=== PATIENT | female | born 1970 | race Caucasian/White ===

== ENCOUNTER → 2017-02-22 | Outpatient (CLI) | payer BC ==
[2017-02-22 16:22] LABS: Follicle Stimulating Hormone 4.8 mIU/mL; Prolactin 11.8 ng/mL (3.0-18.6)
== END | disposition home or self-care (01) ==
LOC: LABWHC1 15:23
PROVIDERS: ATTEND Obstetrics & Gynecology
DX: N92.0 Excessive and frequent menstruation with regular cycle (principal)
CPT/HCPCS: 36415; 82670; 83001; 83002; 84146; 84443

== ENCOUNTER → 2017-03-06 | Outpatient (CLI) | payer BC ==
--- NOTE | 2017-03-06 14:21 | MM ---
Reason for exam: screening (asymptomatic). Baseline mammogram. History: Patient history of other cancer. Physical Findings: Nurse did not find any significant physical abnormalities on exam. MG Screening Mammo w CAD Bilateral CC and MLO view(s) were taken. XCCL view(s) were taken of the right breast. The breast tissue is heterogeneously dense. This may lower the sensitivity of mammography. Finding: There is a 4 mm equal density, circumscribed round mass located 10 cm from the nipple in the middle position of the right breast. Focal asymmetry left upper middle CC view. These results were verbally communicated with the patient and result sheet given to the patient on 03/06/17. ASSESSMENT: Probably benign, BI-RAD 3 RECOMMENDATION: Follow-up diagnostic mammogram of both breasts in 6 months.
== END | disposition home or self-care (01) ==
LOC: RADMAMWWP 08:12
PROVIDERS: ATTEND Obstetrics & Gynecology
DX: Z12.31 Encounter for screening mammogram for malignant neoplasm of breast (principal)

== ENCOUNTER → 2017-04-12 | Outpatient (CLI) | payer BC ==
[2017-04-12 11:29] LABS: Basophils # (A) 0.1 k/uL (0-0.2); Basophils % (A) 1 %; CH 30.4; CHCM 32.1; Eosinophils # (A) 0.1 k/uL (0-0.7); Eosinophils % (A) 1 %; HCT 35.5 % (34.0-46.0); HDW 2.29; HGB 11.5 gm/dL (11.4-16.0); Luc # (Auto) 0.18; Luc % (Auto) 3; Lymphocytes # (A) 1.5 k/uL (1.0-4.8); Lymphocytes % (A) 21 %; MCH 30.7 pg (25.0-35.0); MCHC 32.3 g/dL (31.0-37.0); MCV 95.1 fL (80.0-100.0); Mean Platelet Volume 7.3; Monocytes # (A) 0.5 k/uL (0-1.0); Monocytes % (A) 7 %; Neutrophils # (A) 4.9 k/uL (1.3-7.7); Neutrophils % (A) 67 %; RBC 3.73 m/uL (3.80-5.40); RDW 13.8 % (11.5-15.5); WBC 7.3 k/uL (3.8-10.6); WBC (Perox) 7.13
[2017-04-12 11:47] LABS: Anion Gap 8 mmol/L; Blood Urea Nitrogen 11 mg/dL (7-17); Calcium 9.3 mg/dL (8.4-10.2); Carbon Dioxide 27 mmol/L (22-30); Chloride 105 mmol/L (98-107); Glucose 78 mg/dL (74-99); Non-African American GFR(MDRD) >60 (>60 ml/min/1.73 sqM); Potassium 4.6 mmol/L (3.5-5.1); Sodium 140 mmol/L (137-145)
== END | disposition home or self-care (01) ==
LOC: LABPAT 10:56
PROVIDERS: ATTEND Obstetrics & Gynecology
DX: Z01.812 Encounter for preprocedural laboratory examination (principal)
CPT/HCPCS: 80048; 85025

== ENCOUNTER 2017-04-19 06:07 | Inpatient (IN) | payer BC ==
[2017-04-12 15:59] VITALS: BMI 35.0
[~2017-04-19 06:07] MED LIST: DEXAMETHASONE SOD PHOSPHATE 10 MG/ML 1 ML VIAL IV ONE; LIDOCAINE 1% 20 ML VIAL (10MG/ML) FOR IV START INTRADERMA PRN; ONDANSETRON 4 MG/2 ML VIAL IVP ONE; SCOPOLAMINE 1.5MG/72HR PATCH TRANSDERM ONE; ceFAZolin 2 GM in SODIUM CHLORIDE 0.9% 100 ML IVPB ONE
[2017-04-19] MEDS: LACTATED RINGERS 1,000 ML IV SCH (06:37)
[2017-04-19] MEDS ORDERED: MIDAZOLAM 2 MG/2 ML VIAL IVP ONE (07:10)
[2017-04-19] MEDS ORDERED: fentaNYL (PF) 50 MCG/ML 2 ML AMP IVP ONE (07:10)
--- NOTE | 2017-04-19 07:33 | P.HPOB ---
History of Present Illness H&P Date: 04/19/17 Chief Complaint: Menometorrhagia odilia has up to 14 days each month of very heavy painful menses. symptoms have progressed over the last 4 years and have gotten to the point she cannot leave her house or do her normal daily activities due to how heavy the bleeding is. she is sched for a SHELIA/poss BSO due to same. She has a history of 3 c/s and a large 8 cm fibroid noted, therefore would prefer open technique as a precaution. R/B/A reviewed in detail alfred including damage to ureters/bladder/ bowel due to prior surgical history Physical: heart :RRR, Lungs CTAB: Abd soft, nt, +bS: pelvic exam reveals and enlarged uterus with fibroid. ext without pain Asses: menometorrhagia and fibroid uterus Plan SHELIA/poss BSO Past Medical History Past Medical History: Cancer Additional Past Medical History / Comment(s): SKIN CANCER-BASAL CELL AND MELENOMA History of Any Multi-Drug Resistant Organisms: None Reported Past Surgical History: Section Additional Past Surgical History / Comment(s): C SECTION X3, SKIN LESION REMOVED Additional Past Anesthesia/Blood Transfusion Reaction / Comment(s): LOW BLOOD PRESSURE WITH ANESTHESIA Smoking Status: Former smoker - Past Family History Father Family Medical History: Cancer Additional Family Medical History / Comment(s): LUNG CANCER Medications and Allergies Home Medications Medication Instructions Recorded Confirmed Type Escitalopram [Lexapro] 10 mg PO DAILY 04/12/17 04/19/17 History Allergies Allergy/AdvReac Type Severity Reaction Status Date / Time No Known Allergies Allergy Verified 04/12/17 15:33 Exam Osteopathic Statement: *. No significant issues noted on an osteopathic structural exam other than those noted in the History and Physical/Consult. - Vital Signs Vital signs: Vital Signs Temp Pulse Resp BP Pulse Ox 04/19/17 06:24 97.0 F L 55 L 18 140/70 95
[2017-04-19] MEDS ORDERED: GLYCOPYRROLATE 0.2 MG/ML 2 ML VIAL ONE (07:42)
[2017-04-19] MEDS ORDERED: ROCURONIUM BROMIDE 10 MG/ML 10 ML VIAL IV ONE (07:42)
[2017-04-19] MEDS ORDERED: SUCCINYLCHOLINE CHLORIDE VIAL 200 MG/10 ML VIAL IV ONE (07:42)
[2017-04-19] MEDS ORDERED: ePHEDrine SULFATE/0.9% NACL/PF 50 MG/5 ML SYRINGE IV ONE (07:42)
[2017-04-19] MEDS ORDERED: NEOSTIGMINE 1 MG/ML 10 ML VIAL ONE (07:42)
[2017-04-19] MEDS ORDERED: PROPOFOL 10 MG/ML 20 ML VIAL IV ONE (07:42)
[2017-04-19] MEDS ORDERED: LIDOCAINE 1% INJ 10MG/ML (20 ML MDV) ONE (07:42)
[2017-04-19] MEDS ORDERED: MIDAZOLAM 2 MG/2 ML VIAL ONE (07:42)
[2017-04-19] MEDS ORDERED: fentaNYL (PF) 50 MCG/ML 2 ML AMP ONE (07:42)
[2017-04-19] MEDS ORDERED: ONDANSETRON 4 MG/2 ML VIAL IVP PRN ×3 (08:53→11:24)
[2017-04-19] MEDS ORDERED: KETOROLAC 30 MG/ML 1 ML VIAL IVP PRN (08:53)
[2017-04-19] MEDS ORDERED: diphenhydrAMINE 50 MG/ML 1 ML VIAL IVP PRN ×3 (08:53→11:24)
[2017-04-19] MEDS ORDERED: HYDROmorphone PCA 5 MG/25 ML SYRINGE IV PRN (08:55)
[2017-04-19] MEDS ORDERED: NALOXONE 0.4 MG/ML 1 ML VIAL IV PRN ×3 (08:55→11:24)
--- NOTE | 2017-04-19 09:04 | P.OP ---
Date of Procedure: 04/19/17 Preoperative Diagnosis: Menorrhagia and fibroid uterus Postoperative Diagnosis: Same Procedure(s) Performed: Total abdominal hysterectomy Anesthesia: AFSHAN Surgeon: Rashard Che Radiation Oncology Manager #1: Tete Desir Estimated Blood Loss (ml): 175 IV fluids (ml): 900 Urine output (ml): 250 Pathology: other (Uterus and cervix) Condition: stable Disposition: floor Operative Findings: Grossly enlarged fibroid uterus Description of Procedure: Patient was taken to the operating suite where a general anesthetic was found be adequate. She was prepped and draped in the normal sterile fashion and placed in the dorsal supine position. Initially a Pfannenstiel skin incision was made and this incision was then carried through to the underlying layer of the fascia with a second knife. Donna was then nicked in the midline and this opening was extended laterally with Conway scissors. Superior and inferior aspect of this incision were then grasped tented up and bluntly and sharply dissected off the rectus muscles. Rectus muscles were then divided the midline and sharp dissection through the peritoneum was made. This opening was then extended superiorly and inferiorly with good visualization of both bowel bladder. A self-retaining retractor was then inserted into the abdomen and a bladder blade was placed. Bowels packed out of the operative field and patient was placed in steep Trendelenburg position. Uterus was then elevated and the next were grasped with long Chrissy's. He clamps then used to clamp over the round ligament tubal complexes bilaterally tissues clamped cut and tied moving inferiorly the uterine vascular was clamped cut and tied with Tiffanie clamps area once this was accomplished sharp entry into the bladder flap was done and the bladder flap was then bluntly dissected completely out of the operative field. Once this was accomplished he clamps then used to clamp in a stepwise fashion moving inferiorly through the cardinal and uterosacral ligaments to the vaginal cuff. Each step the tissues clamped cut and tied once vaginal cuff was entered corner for held during this process. Uterus was then excised excised and sent to pathology for evaluation. Vaginal cuff boundaries were identified with cokers clamps elevated quarters reincorporated to assist in support and maintain excellent hemostasis through that area. Cuff was then closed with 0 Vicryl suture in a running fashion. Once excellent hemostasis was felt to be obtained pelvis was completely irrigated seeing no bleeding instruments were removed as was bowel packing. Peritoneal layer was then identified after irrigating the abdomen. Peritoneal layer was then closed with 0 Vicryl suture fascial layer was closed with 0 Vicryl suture one layer of 3-0 Vicryl was placed in deep subcuticular tissues reapproximate the skin and the skin was then closed with cynthia. Sponge, lap, needle counts were all correct 2. Patient was then taken to the recovery room in stable and satisfactory condition.
[2017-04-19] MEDS: HYDROmorphone 1 MG/ML 1 ML SYRINGE IVP PRN ×2 (09:48→09:55)
[2017-04-19] MEDS: SENNOSIDES-DOCUSATE SODIUM 1 EACH TAB PO SCH ×2 (10:18→20:12)
[2017-04-19] MEDS: KETOROLAC 30 MG/ML 1 ML VIAL IVP PRN ×2 (15:17→21:25)
[2017-04-20] MEDS: Acetaminophen-Codeine 300-30mg TAB PO PRN ×4 (06:10→21:34)
[2017-04-20 07:32] LABS: Basophils % (A) 0 %; CH 30.4; CHCM 31.8; Eosinophils % (A) 0 %; HCT 30.1 % (34.0-46.0); HDW 2.51; Luc # (Auto) 0.17; Luc % (Auto) 2; Lymphocytes # (A) 1.6 k/uL (1.0-4.8); Lymphocytes % (A) 17 %; MCH 31.4 pg (25.0-35.0); MCHC 32.7 g/dL (31.0-37.0); MCV 95.9 fL (80.0-100.0); Mean Platelet Volume 7.1; Monocytes # (A) 0.8 k/uL (0-1.0); Monocytes % (A) 8 %; Neutrophils # (A) 6.9 k/uL (1.3-7.7); Neutrophils % (A) 73 %; RBC 3.14 m/uL (3.80-5.40); RDW 13.5 % (11.5-15.5); WBC 9.5 k/uL (3.8-10.6); WBC (Perox) 9.39
[2017-04-20 07:34] LABS: HGB 9.9 gm/dL (11.4-16.0)
--- NOTE | 2017-04-20 08:08 | P.PN ---
Progress Note - Text Date:04/20 Time:704am Patient is status post cecelia. Patient seen this morning with VAS score of 2. c/o of pruritus, no c/o nausea/vomiting, comfortable and doing well.
[2017-04-20] MEDS: SENNOSIDES-DOCUSATE SODIUM 1 EACH TAB PO SCH ×2 (09:09→21:35)
[2017-04-20] MEDS: SIMETHICONE 80 MG CHEWABLE PO PRN ×3 (09:09→18:24)
--- NOTE | 2017-04-20 09:11 | P.PN ---
Progress Note - Text Melita is seen and evaluated. She is doing very well this morning. She is involuting, voiding, and she is tolerating her diet. She voices no complaint. Vital signs are stable and afebrile. Heart regular, lungs clear, extremities without pain. Abdomen soft nontender tenderness her incision is clean dry and intact. Assessment postop day 1. Plan continue current care with likely discharged home tomorrow. All questions are answered for her at this time.
[2017-04-20] MEDS: LACTATED RINGERS 1,000 ML IV SCH (14:35)
[2017-04-20] MEDS: IBUPROFEN 600 MG TAB PO PRN (18:23)
[2017-04-21] MEDS: IBUPROFEN 600 MG TAB PO PRN (00:23)
[2017-04-21] MEDS: Acetaminophen-Codeine 300-30mg TAB PO PRN (03:50)
[2017-04-21 08:23] VITALS: BP 113/71; PULSE 57; RESP 19; TEMP 98.2
[2017-04-21] MEDS: SENNOSIDES-DOCUSATE SODIUM 1 EACH TAB PO SCH (08:40)
[2017-04-21] MEDS: LACTATED RINGERS 1,000 ML IV SCH (10:03)
--- NOTE | 2017-04-21 10:16 | P.DS ---
Providers Date of admission: 04/19/17 06:07 Expected date of discharge: 04/21/17 Attending physician: Rashard Che Primary care physician: [facility] Course: Melita is doing very well postop day 2. She is involuting, voiding, and she is tolerating her diet. She voices no complaints. Vital signs are stable and afebrile. Heart regular, lungs clear, extremities without pain. We'll plan discharged home later today. Prescription for pain relievers have been provided and discharge instructions thoroughly reviewed. Vital signs are stable and afebrile. She will follow up with me in 1 week. She is aware to have no heavy lifting, limit stairs and driving and pelvic rest. We'll plan to remove cynthia today as well and all the questions are answered for her prior to her discharge. Patient Condition at Discharge: Good Plan - Discharge Summary New Discharge Prescriptions: New Acetaminophen-Codeine 300-30mg [Tylenol #3] 1 tab PO Q4H PRN #30 tablet PRN Reason: Pain Ibuprofen [Motrin] 600 mg PO Q6HR PRN #30 tab PRN Reason: Pain No Action Escitalopram [Lexapro] 10 mg PO DAILY Discharge Medication List Escitalopram [Lexapro] 10 mg PO DAILY 04/12/17 [History] Acetaminophen-Codeine 300-30mg [Tylenol #3] 1 tab PO Q4H PRN #30 tablet [Rx] Ibuprofen [Motrin] 600 mg PO Q6HR PRN #30 tab 04/19/17 [Rx] Follow up Appointment(s)/Referral(s): Rashard Che DO [Doctor of Osteopathic Medicine] - 04/27/17 9:00 am (You have an appointment with Dr Che on Sunday, April 27, 2017 at 9:00 am.) Patient Instructions/Handouts: Hysterectomy (DC) Activity/Diet/Wound Care/Special Instructions: No heavy lifting, limit stairs and driving and pelvic rest if any high temperatures, heavy bleeding, or severe pain call my office. Discharge Disposition: HOME SELF-CARE
== END 2017-04-21 12:05 | disposition home or self-care (01) | DRG 743 ==
LOC: 2ORWHC 06:07 → 6PED 08:52
PROVIDERS: ADMIT Obstetrics & Gynecology; ATTEND Obstetrics & Gynecology
PROC: 0UTC0ZZ Resection of Cervix, Open Approach (ICD-10-PCS; 2017-04-19)
PROC: 0UT90ZZ Resection of Uterus, Open Approach (ICD-10-PCS; principal; 2017-04-19 07:45)
DX: D25.9 Leiomyoma of uterus, unspecified (principal); N92.0 Excessive and frequent menstruation with regular cycle; Z79.899 Other long term (current) drug therapy; Z87.891 Personal history of nicotine dependence; Z85.828 Personal history of other malignant neoplasm of skin; Z85.820 Personal history of malignant melanoma of skin
CPT/HCPCS: 81025; 85025; 86850; 86900; 86901; 88307; 88341; 88342

== ENCOUNTER → 2018-03-20 | Outpatient (CLI) | payer BC ==
--- NOTE | 2018-03-26 11:54 | MM ---
Reason for exam: screening (asymptomatic). Last mammogram was performed 1 year ago. History: Patient history of other cancer. Family history of breast cancer in maternal aunt and breast cancer in maternal cousin. Physical Findings: A clinical breast exam by your physician is recommended on an annual basis and results should be correlated with mammographic findings. MG Screening Mammo w CAD Bilateral CC and MLO view(s) were taken. Prior study comparison: March 06, 2017, bilateral MG screening mammo w CAD. The breast tissue is heterogeneously dense. This may lower the sensitivity of mammography. Focal asymmetry upper outer left breast is stable. No significant changes when compared with prior studies. ASSESSMENT: Benign, BI-RAD 2 RECOMMENDATION: Routine screening mammogram of both breasts in 1 year.
== END | disposition home or self-care (01) ==
LOC: RADMAMWWP 07:46
PROVIDERS: ATTEND Family Medicine
DX: Z12.31 Encounter for screening mammogram for malignant neoplasm of breast (principal)
CPT/HCPCS: 77067